=== PATIENT | female | born 1955 | race Caucasian/White ===

== ENCOUNTER 2017-07-12 08:38 | Outpatient (CLI) | payer OTHER ==
--- NOTE | 2017-07-13 15:40 | Mammography Report ---
DIGITAL SCREENING MAMMOGRAM: 07/12/2017 CLINICAL INDICATION: A 61-year-old with history of late childbearing for screening. COMPARISON: 05/2016, 05/2015, 04/2014, 06/2012, 09/2011, 02/2011, 08/2010, 07/2010 TECHNIQUE: Routine CC and MLO projections were obtained of the breasts. FINDINGS: The breasts again demonstrate heterogeneously dense fibroglandular parenchyma bilaterally. Punctate, typically benign calcifications are present. No suspicious masses, clustered microcalcif ications, or regions of architectural distortion are identified. IMPRESSION: BENIGN FINDINGS. RECOMMENDATION: Routine annual screening unless otherwise clinically indicated. BIRADS CATEGORY 2 - BENIGN FINDINGS. STANDARD QUALIFYING STATEMENTS 1. This examination was reviewed with the aid of Computer-Aided Detection (CAD). 2. A negative or benign imaging report should not delay biopsy if clinically suspicious findings are present. Consider surgical consultation if warranted. More than 5% of cancers are not identified by i maging. 3. Dense breasts may obscure an underlying neoplasm. JOB #: [id number] EXT JOB #:[id number]
== END 2017-07-12 08:39 | disposition home or self-care (01) ==
LOC: DI.S 08:38
PROVIDERS: ATTEND Physician Assistant
DX: Z12.31 Encounter for screening mammogram for malignant neoplasm of breast (principal)
CPT/HCPCS: 77067

== ENCOUNTER 2017-07-12 11:17 | Outpatient (CLI) | payer OTHER | END 2017-07-12 11:18 | disposition home or self-care (01) | LOC: DI 11:17 | PROVIDERS: ATTEND Physician Assistant | DX: R60.0 Localized edema (principal); I10 Essential (primary) hypertension; I51.7 Cardiomegaly | CPT/HCPCS: 93306 ==

== ENCOUNTER 2018-09-19 13:21 | Outpatient (CLI) | payer OTHER ==
--- NOTE | 2018-09-20 08:30 | Mammography Report ---
Reason: SCREENING MAMMO Procedure Date: 09/19/2018 Accession Number: [id number] / [id number] Procedure: [facility] - Screening Mammo w/Servando CPT Code: FULL RESULT: EXAM: Screening Mammo w/Servando DATE: 09/19/2018 1:54 PM CLINICAL HISTORY: Screening encounter. History of late childbearing. TECHNIQUE: Bilateral CC and MLO views were obtained. A cleavage view was obtained. COMPARISON: 07/12/2017 through 05/02/2014. FINDINGS: The breasts demonstrate heterogeneously dense fibroglandular parenchyma bilaterally. No suspicious masses, clustered microcalcifications, or regions of architectural distortion are identified. IMPRESSION: Negative examination RECOMMENDATION: Routine annual screening unless otherwise clinically indicated. BIRADS CATEGORY 1: Negative STANDARD QUALIFYING STATEMENTS: 1. This examination was not reviewed with the aid of Computer-Aided Detection (CAD). 2. A negative or benign imaging report should not preclude biopsy if clinically suspicious findings are present. 3. Dense breasts may obscure an underlying neoplasm. 4. This examination was reviewed without the aid of 3D breast imaging (tomosynthesis).
== END 2018-09-19 13:22 | disposition home or self-care (01) ==
LOC: DI 13:21
PROVIDERS: ATTEND Registered Nurse
DX: Z00.00 Encounter for general adult medical examination without abnormal findings (principal); Z12.31 Encounter for screening mammogram for malignant neoplasm of breast
CPT/HCPCS: 77063; 77067

== ENCOUNTER 2019-06-05 14:30 | Outpatient (CLI) | payer OTHER ==
[2019-06-06 19:52] LABS: CANDIDA GROUP DNA NEGATIVE (NEGATIVE); CANDIDA KRUSEI DNA NEGATIVE (NEGATIVE); TRICHOMONAS VAGINALIS DNA NEGATIVE (NEGATIVE)
== END 2019-06-05 23:59 | disposition home or self-care (01) ==
LOC: LAB.R 14:30
PROVIDERS: ATTEND Obstetrics & Gynecology
DX: N89.9 Noninflammatory disorder of vagina, unspecified (principal); L28.0 Lichen simplex chronicus
CPT/HCPCS: 87661; 87801

== ENCOUNTER 2019-10-30 10:12 | Outpatient (CLI) | payer BC ==
--- NOTE | 2019-10-30 12:33 | Mammography Report ---
Reason: SELF REFERRING MAMMO Procedure Date: 10/30/2019 Accession Number: [id number] / [id number] Procedure: [facility] - Screening Mammo Dig Bilat CPT Code: Final Report FULL RESULT: EXAM: Screening Mammo Dig Bilat DATE: 10/30/2019 10:35 AM CLINICAL HISTORY: Routine screening. Late childbearing. TECHNIQUE: (B) - Bilateral CC and MLO views were obtained. COMPARISON: 09/19/2018, 07/12/2017, 06/24/2016, 06/03/2015, 05/02/2014 and 03/15/2013 PARENCHYMAL PATTERN: (VD) - The breasts demonstrate extremely dense parenchyma bilaterally, limiting the sensitivity of mammography. FINDINGS: No significant interval change. There are no suspicious masses, calcifications, or areas of distortion. IMPRESSION: Negative examination. BI-RADS category 1. RECOMMENDATION: (ANNUAL) - Recommend routine annual screening mammography. BI-RADS CATEGORY: (1) - Negative. STANDARD QUALIFYING STATEMENTS: 1. This examination was not reviewed with the aid of Computer-Aided Detection (CAD). 2. A negative or benign imaging report should not preclude biopsy if clinically suspicious findings are present. 3. Dense breasts may obscure an underlying neoplasm. 4. This examination was reviewed without the aid of 3D breast imaging (tomosynthesis).
== END 2019-10-30 10:13 | disposition home or self-care (01) ==
LOC: DI.S 10:12
DX: Z12.31 Encounter for screening mammogram for malignant neoplasm of breast (principal)
CPT/HCPCS: 77067

== ENCOUNTER 2020-11-18 15:11 | Outpatient (CLI) | payer BC ==
--- NOTE | 2020-11-19 10:15 | Mammography Report ---
BILATERAL DIGITAL SCREENING MAMMOGRAM 3D/2D: 11/18/2020 CLINICAL: Routine screening. Comparison is made to exams dated: 10/30/2019 mammogram, 09/19/2018 mammogram, and 07/12/2017 mammogra m - [facility]. The tissue of both breasts is heterogeneously dense. This may lowe r the sensitivity of mammography. No significant masses, calcifications, or other findings are seen in either breast. There has been no significant interval change. IMPRESSION: NEGATIVE There is no mammographic evidence of malignancy. A 1 year screening mammogram is recommended. This exam was interpreted at Station ID: [id number]. NOTE: For mammograms, a report in lay terms will be sent to the patient. Approximately 15% of breast malignancies will not be visualized mammographically. In the management of a palpable breast mass, a negative mammogram must not discourage biopsy of a clinically suspicious lesion. Electronically Signed By: Lenora alas/penrad:11/18/2020 17:24:12 ACR BI-RADS Category 1: Negative 3341F PARENCHYMAL PATTERN: (D) - The breast(s) demonstrate(s) heterogeneously dense fibroglandular parmichaely ma. BI-RADS CATEGORY: (1) - 1 RECOMMENDATION: (ANNUAL) - Recommend routine annual screening mammography. [id number] 1 year screening LATERALITY: (B)
== END 2020-11-18 15:12 | disposition home or self-care (01) ==
LOC: DI.S 15:11
PROVIDERS: ATTEND Nurse Practitioner Family
DX: Z12.31 Encounter for screening mammogram for malignant neoplasm of breast (principal)

== ENCOUNTER 2022-03-04 12:50 | Outpatient (CLI) | payer BC, MEDICARE ==
[2022-03-04 13:49] VITALS: BP 126/80
--- NOTE | 2022-03-04 13:49 | SLEEP CARE CONSULTATION ---
Information from patient questionnaire entered by Jose Kraus MA. I have reviewed and concur with the information entered by Jose Kraus MA. This document represents the service I personally performed and the decisions made by , Savannah Mcgill ARNP. History of Present Illness Service Date and Time: 03/04/2022 1250 Reason for Visit: New patient (ONSET 09/25/2019, ) Chief Complaint: reports: Snoring, Observed pauses in breathing Date of Onset: 5-10 YEARS Usual bedtime: 10 PM Time it takes to fall asleep: 30 MIN Snores at night: Yes Observed to quit breathing while asleep: Yes Sleeps alone due to snoring: No Number of times waking at night: 4-5 Reasons for waking at night: reports: Snoring, Pain, Bathroom, Other ('s snoring; dog waking her up) Toss, Turn, or Twitch while sleeping: Yes Recalls having dreams: Yes (SOMETIMES, if able to lay in bed for a few minutes ) Usually gets out of bed at: 0600 Feels refreshed in the morning: No (not 100%; not really feeling tired) Morning headache: No Sleepy or fatigued during the day: No Ever fallen asleep while driving: No Takes day naps: No Dreams during day naps: No Prior sleep studies: No Additional HPI information: I had the pleasure of seeing KATEY PETERSON today regarding the possibility of her having a sleep disorder. Her current complaints are snoring and observed pauses in breathing. Her has told her she snores and has pauses in breathing. She states she has had an occasional feeling of something closing in her throat when laying in bed. She does elevated her head when sleeping. - Parasomnia Symptoms Ever been unable to move upon waking from sleep: No Walks in sleep: No Talks in sleep: No Ever acted out dreams in sleep: No Ever felt weak in the knees when startled or emotional: No Bothered by creepy, crawly, restless sensations in legs: No Problems with memory or concentration: No Subjective Initial [place] Sleepiness Scale score: 11 (03/04/2022) Past Medical History Past Medical History: reports: Hypertension, Arthritis, Other (Yi's disease, in remission; 3 basal cell carcinoma on face/scalp (Greg); psoriasis) Social History The patient's occupation is a [employer]. Patient is and lives in [place]. Have you smoked in the past 12 months: No Cigarettes per day (20/pack): 2 Years of smokin Quit date: 2011 Smoking Pack Years: 1.0 Alcohol use: Yes Alcohol amount and frequency: 12 X WEEKLY Caffeine use: Yes Caffeine amount and frequency: 2 X PER DAY Family History Family history of sleep disordered breathing: No Allergies and Home Medications Known drug allergies: No Drug allergies reviewed: Yes (NKDA) Home medication list reviewed: Yes Allergy and home medication list: Medications: Marshall 5/325 mg, prn Nystatin powder, prn Clobetasol 0.05 % ointment, prn Gaviscon, prn Irbesartan, daily Multivitamins, daily Review of Systems Weight gain over past 5 years: 10 Weight loss over past 5 years: 10 Cardiovascular: reports: high blood pressure, leg or foot swelling Gastrointestinal: reports: heartburn Urinary: reports: incontinence Neurological: reports: gait or balance problems. denies: head trauma Psychiatric: denies: Attention Deficit Hyperactivity, anxiety, depression Ear/Nose/Throat: denies: nasal congestion, sinus problems, injury to nose, tonsillectomy Endocrine: denies: thyroid disease Musculoskeletal: reports: joint pain Immunologic: reports: sneezing Physical Exam Vital signs obtained and entered by: CJ PAGAN Blood Pressure: 126/80 (RESP 18, PULSE 79, RIGHT, ) Cuff size: wrist Heart Rate: 78 O2 Saturation: 96 (PAPER MASK) Height: 5 ft 7 in Weight: 224 lb (WITH CLOTHES) Body Mass Index: 35.0 BMI Classification: Obese Neck circumference: 13.5 (INCHES) Mouth and throat: normal Soft palate: long Hard palate: normal Uvula: normal Uvula visualization: 50% Mallampati Class II Tongue: enlarged in size with teeth haji on lateral edges Tonsils: 2+ (on right, 1+ on left) Neck: normal w/o lymphadenopathy or thyromegaly Heart: regular rate and rhythm Lungs: clear bilaterally Impression and Plan 1. Suspected Obstructive Sleep Apnea-Hypopnea Syndrome, as suggested by a history of loud and irregular snoring, observed cessation of breath while asleep, frequent awakening during the night, unrefreshed sleep, and excessive daytime sleepiness. Narrow oropharynx and obesity are common predisposing factors for obstructive sleep apnea-hypopnea syndrome. I recommend proceeding to polysomnography to confirm the diagnosis and to assess severity. If the patient has significant sleep disordered breathing, a manual CPAP titration study will also be performed to find the optimal treatment pressure. I informed the patient of what the sleep studies involve and after some discussion, obtained agreement to proceed. The pathophysiology of obstructive sleep apnea-hypopnea syndrome was discussed with the patient and health risks of cardiovascular and cerebrovascular disease if not treated. Risks of drowsy driving discussed in detail and patient advised to avoid long distance driving and to chain puller at the first sign of drowsiness. Patient agreed to plan. * Schedule polysomnography * Avoid long distance driving or driving when feeling sleepy. * Avoid alcohol, sedative and muscle relaxant around bedtime. * Attempt to lose weight. * Review instructions provided by trained office staff on how to prepare for the sleep study. * Return for follow-up after sleep study completed. Counseling Topics: Weight loss health impact Visit Type: In Office Time Spent with Patient (minutes): 30 Provider Statement: I spent 100% of the Face to Face Visit with the patient with greater than 50% spent counseling the patient and coordination of care.
== END 2022-03-04 12:51 | disposition home or self-care (01) ==
LOC: SC 12:50
PROVIDERS: ATTEND Nurse Practitioner Family
DX: R06.83 Snoring (principal); G47.8 Other sleep disorders; G47.10 Hypersomnia, unspecified
CPT/HCPCS: 99203; G0463; 99212

== ENCOUNTER 2022-04-01 12:50 | Outpatient (CLI) | payer MEDICARE ==
--- NOTE | 2022-04-01 13:41 | SLEEP CARE CONSULTATION ---
Information from patient questionnaire entered by Jose Kraus MA. I have reviewed and concur with the information entered by Jose Kraus MA. This document represents the service I personally performed and the decisions made by , Savannah Mcgill ARNP. History of Present Illness Service Date and Time: 04/01/2022 1250 Initial [place] Sleepiness Scale score: 11 (03/04/2022) Current [place] Sleepiness Scale score: 8 (04/01/2022) Additional HPI information: KATEY PETERSON returns with spouse for follow up and results of the recently performed polysomnography. I explained the pathophysiology behind obstructive sleep apnea. We then spent quite a bit of time discussing different treatment options. For mild obstructive sleep apnea, surgery and oral appliance are alternatives to nasal CPAP therapy but in moderate or severe cases, nasal CPAP is the most effective and reliable treatment. Because apnea is primarily in supine position, then positional management therapy could be effective. Methods discussed such as positioning with pillows to prevent supine sleep. I reviewed the impact of weight changes on sleep apnea and strongly recommended losing weight. After some discussion, the patient opted to go with the nasal CPAP therapy. Nasal autoCPAP set at 4-15 cmH20 will be ordered with rationale explained. A manual titration study will be ordered if unable to find optimal pressure with office adjustments. I explained how CPAP machine works and what to expect when using the machine. Using CPAP every night in order to get used to it was emphasized. Patient advised to put CPAP mask on before getting into bed so as not to fall asleep without CPAP. To assist acclimation to CPAP use, it could also be used for a short time during day while reading or watching TV. The patient was instructed to call the CPAP supplier to discuss any mechanical problem that may occur. If the mask given is uncomfortable or is difficult to keep on through the night even with adjustment, contact the CPAP supplier as many will replace with another mask style if notified before 30 days. If snoring or perceives is not getting enough air or too much air from the machine, notify this office. Patient counseled not drink alcohol less than 4 hours before bedtime as it can increase snoring and apnea. Patient was cautioned about risks of drowsy driving until sleepiness symptoms resolve. Patient denies drowsy driving. Sleep Study - Results Type of Sleep Study: Polysomnography (F/U [facility], [facility] Prior sleep studies: No Polysomnography/Home Sleep Study results: IMPRESSION: The quality of the study is good. The patient had normal sleep efficiency. The sleep architecture was abnormal for sleep fragmentation and reduced amount of time spent in REM sleep. Respiratory monitoring showed severe obstructive sleep apnea-hypopnea (AHI = 37.6) associated with frequent arousals, oxyhemoglobin desaturation and moderate hypoxia (jasmin oxygen saturation of 74%). Baseline oxygen saturation was normal. The respiratory events occurred independently of sleep stage and body position (supine AHI = 27.2; non-supine = 47.69). Snore was light to loud in intensity. There was moderate periodic leg movement of sleep not contributing to the sleep fragmentation. Cardiac rhythm was normal sinus rhythm with occasional premature atrial contractions. No abnormal behavior (parasomnia) observed during the night. Allergies and Home Medications Home medication list reviewed: Yes (no changes) Review of Systems Review of systems same as previous: Yes (no changes) Physical Exam Vital signs obtained and entered by: CJ PAGAN Blood Pressure: 111/90 (RESP 16, PULSE 75, LFT) Heart Rate: 76 O2 Saturation: 98 (PAPER MASK) Height: 5 ft 7 in Weight: 228 lb (CLOTHES) Weight change since last visit: LOSE, PORTION AND HEALTHY MEALS Body Mass Index: 35.6 BMI Classification: Obese Impression and Plan 1. Obstructive Sleep Apnea-Hypopnea Syndrome, severe, with lowest oxygen saturation of 74%. Obviously this is the cause of the patients symptoms of unrefreshed sleep, and excessive daytime sleepiness. Positive pressure therapy could benefit hypertension. As mentioned above, the patient will be started on nasal autoCPAP therapy with pressure set at 4-15 cmH2O. Compliance guidelines also reviewed. A copy of compliance guidelines will be given for reference at check out. 2. Hypoxemia, moderate, with a jasmin oxygen saturation of 74% and 7.2 minutes under 89%. Her baseline oxygen saturation was normal was normal with an average oxygen saturation of 94%. * Nasal auto CPAP therapy, pressure at 4-15 cm H2O. * Attempt to lose weight. * Avoid alcohol consumption near bedtime. * The patient is again cautioned about driving until sleepiness completely resolves. * Return one month after CPAP obtained. I will assess response to therapy and compliance at that time. Counseling Topics: Weight loss health impact Visit Type: In Office Time Spent with Patient (minutes): 23 Provider Statement: I spent 100% of the Face to Face Visit with the patient with greater than 50% spent counseling the patient and coordination of care.
[2022-04-01 13:42] VITALS: BP 111/90
== END 2022-04-01 12:51 | disposition home or self-care (01) ==
LOC: SC 12:50
PROVIDERS: ATTEND Nurse Practitioner Family
DX: G47.33 Obstructive sleep apnea (adult) (pediatric) (principal); R09.02 Hypoxemia; E66.9 Obesity, unspecified; Z68.35 Body mass index [BMI] 35.0-35.9, adult
CPT/HCPCS: 99213; G0463; 99212

== ENCOUNTER 2022-04-13 10:30 | Outpatient (CLI) | payer MEDICARE ==
--- NOTE | 2022-04-13 16:18 | Mammography Report ---
BILATERAL DIGITAL SCREENING MAMMOGRAM 3D/2D: 04/13/2022 CLINICAL: Routine screening. Comparison is made to exams dated: 11/18/2020 mammogram, 10/30/2019 mammogram, 09/19/2018 mammogram, mammogram, and 06/24/2016 mammogram - [facility]. The tissue of both breas ts is heterogeneously dense. This may lower the sensitivity of mammography. No significant masses, calcifications, or other findings are seen in either breast. There has been no significant interval change. IMPRESSION: NEGATIVE There is no mammographic evidence of malignancy. A 1 year screening mammogram is recommended. Based on the Tyrer Cuzick model (a risk assessment model) the patients lifetime risk is 12.3% and he r 10 year risk is 6.3%. According to the ACR, ACS, and NCCN guidelines, an annual breast MRI exam lg ng with mammogram is recommended if the patients lifetime risk is 20% or greater. This exam was interpreted at Station ID: [id number]. NOTE: For mammograms, a report in lay terms will be sent to the patient. Approximately 15% of breast malignancies will not be visualized mammographically. In the management of a palpable breast mass, a negative mammogram must not discourage biopsy of a clinically suspicious lesion. Electronically Signed By: Jey yee/celina:04/13/2022 11:17:32 ACR BI-RADS Category 1: Negative 3341F PARENCHYMAL PATTERN: (D) - The breast(s) demonstrate(s) heterogeneously dense fibroglandular olivia vasquez. BI-RADS CATEGORY: (1) - 1 RECOMMENDATION: (ANNUAL) - Recommend routine annual screening mammography. [id number] 1 year screening LATERALITY: (B)
== END 2022-04-13 10:31 | disposition home or self-care (01) ==
LOC: DI 10:30
PROVIDERS: ATTEND Obstetrics & Gynecology
DX: Z12.31 Encounter for screening mammogram for malignant neoplasm of breast (principal)

== ENCOUNTER 2022-04-13 10:33 | Outpatient (CLI) | payer MEDICARE ==
--- NOTE | 2022-04-13 13:11 | DEXA Report ---
PROCEDURE: Dexa Spine and/or Hip INDICATIONS: SCREENING FOR OSTEOPOROSIS TECHNIQUE: Dual energy x-ray absorptiometry (DXA) was performed on a [employer]. Regions measur ed are the AP Spine, femoral neck, and if needed forearm. COMPARISON: None. FINDINGS: Lumbar Spine: Bone Mineral Density 1.1 g/cm/cm,T score -0.9, normal bone density Left Hip: Bone Mineral Density 0.9 g/cm/cm,T score -0.8, normal bone density Impression: Normal bone density of the lumbar spine and left hip. Patients with diagnosis of osteoporosis or osteopenia should have regular bone mineral density assess ment. For those eligible for Medicare, routine testing is allowed once every 2 years. Testing frequ ency can be increased for patients who have rapidly progressing disease or for those who are receivin g medical therapy to restore bone mass. Reviewed by: Tawny Templeton MD on 04/13/2022 1:10 PM PDT Approved by: Tawny Templeton MD on 04/13/2022 1:10 PM PDT Station ID: [id number]
== END 2022-04-13 10:34 | disposition home or self-care (01) ==
LOC: DI 10:33
PROVIDERS: ATTEND Obstetrics & Gynecology
DX: Z13.820 Encounter for screening for osteoporosis (principal)

== ENCOUNTER 2022-08-12 09:06 | Outpatient (CLI) | payer MEDICARE ==
[2022-08-12 10:09] VITALS: BP 130/82
--- NOTE | 2022-08-12 10:09 | SLEEP CARE CONSULTATION ---
Information from patient questionnaire entered by Kimberly Vivar. I have reviewed and concur with the information entered by Kimberly Vivar. This document represents the service I personally performed and the decisions made by me, Savannah Mcgill ARNP. History of Present Illness Service Date and Time: 08/12/2022 09 Previous diagnosis: Severe, Obstructive Sleep Apnea-Hypopnea Syndrome AHI: 37.6 (in 2021) Reason for follow up: first compliance Equipment type: CPAP (ResMed) Equipment obtained from: [facility] (got initial supplies) Mask style: Full face Mask brand: Resmed (F20) Backup mask available: No Prior sleep studies: No Type of Sleep Study: Polysomnography (F/U POLY, 03/16/22 [facility], POS (SEVERE)) HPI additional information: KATEY PETERSON was diagnosed to have severe, AHI 37.6, obstructive sleep apnea- hypopnea syndrome and returned today with spouse for CPAP therapy first compliance follow-up. Sleep Study - Results Type of Sleep Study: Polysomnography (F/U POLY, 03/16/22 [facility], POS (SEVERE)) Prior sleep studies: No CPAP Compliance Data - Data Reviewed with Patient Average duration of nightly device use: 7 HRS 39 MIN Compliance rate %: 97 (06/11/2022-08/09/2022; 58/60 days used) Current pressure setting (cmH2O): 4-15 (median 11.5, avg 15.2, max 15.8) Average residual AHI: 2.3 Central apnea: 0.2 Obstructive apnea: 0.5 Hypopnea: 0.2 Subjective Missed days of use due to: reports: other (power outages) Patient concerns: reports: air blowing in eyes (only when taking off and putting back on after bathroom), condensation in mask/hose, dry mouth, nose, throat, other (headache). denies: aerophagia, mask discomfort, mask leak noise, nasal congestion, epistaxis Observed to snore while using device: No Current pressure setting perceived as: comfortable On therapy, patient: reports: sleeping better, other (feels like getting less sleep than before; light sleeper). denies: drowsiness while driving Initial [place] Sleepiness Scale score: 11 (03/04/2022) Current [place] Sleepiness Scale score: 8 (08/12/2022) Allergies and Home Medications Drug allergies reviewed: Yes (NKDA) Home medication list reviewed: Yes (no changes) Review of Systems Review of systems same as previous: Yes (no changes) Physical Exam Vital signs obtained and entered by: KIMBERLY Mott MA Blood Pressure: 130/82 (LEFT ARM) Cuff size: regular Heart Rate: 72 O2 Saturation: 98 Height: 5 ft 7 in Weight: 234 lb 9.6 oz Body Mass Index: 36.7 BMI Classification: Obese Impression and Plan 1. Obstructive Sleep Apnea-Hypopnea Syndrome, severe, with good treatment compl iance and good apnea control. Patient has felt that she is sleeping better in the last week, better quality sleep. But, she states she is a light sleeper and the mask leak noises are waking her up. This is interrupting her sleep more than before she started using her CPAP. So far, she is not feeling more rested during the day. Her [place] score improved from 11\24-8\24. Patient is using a F20 full face mask. She feels her mouth comes open and sometimes gets dry. She has adjusted her humidifier and heated hose and it seems to be working better at this time. She has been getting some headaches on her left sinus since starting using the CPAP. She denies specific sinus issues and states she has been sleeping more on that side. I discussed using a CPAP pillow to reduce pressure on the side of her face to see if this will help reduce headaches and will also keep pressure down. We will reevaluate this at her next visit to see if they have improved. The patients pressure will be changed to autoCPAP 12-15 cmH20 to reflect pressures being used. Patient advised to contact me if pressure change is uncomfortable so that it can be adjusted. Goals for apnea control discussed. Patient's apnea severity and rationale for treatment to reduce apnea, improve sleep quality and reduce cardiovascular and cerebrovascular events was reviewed. I also reviewed the benefit of consistent device use of CPAP for hypertension. 2. Obesity, unspecified. Currently patients BMI is 37.6. Obesity increases the risk of apnea, CPAP pressure requirements and overall health risks especially cardiovascular and diabetes. Thus patient is advised to lose weight. * Change auto CPAP pressure to 12-15 cmH2O * Notify me if snoring with mask or feeling that the pressure is too much or too little * Attempt to lose weight * Call this office if any problems using CPAP * Return for follow up in 1-2 months, or sooner if concerns arise Counseling Topics: Spare mask, Weight loss health impact Visit Type: In Office Time Spent with Patient (minutes): 21 Provider Statement: I spent 100% of the Face to Face Visit with the patient with greater than 50% spent counseling the patient and coordination of care.
== END 2022-08-12 09:07 | disposition home or self-care (01) ==
LOC: SC 09:06
PROVIDERS: ATTEND Nurse Practitioner Family
DX: G47.33 Obstructive sleep apnea (adult) (pediatric) (principal); E66.9 Obesity, unspecified; Z68.36 Body mass index [BMI] 36.0-36.9, adult
CPT/HCPCS: 99213; G0463; 99212

== ENCOUNTER 2022-08-17 09:16 | Outpatient (CLI) | payer MEDICARE ==
[2022-08-17 09:22] LABS: MUDS CUTOFF CONCENTRATIONS CUTOFF CONC BELOW:
[2022-08-17 14:58] LABS: AMPHETAMINE SCREEN,URINE NEGATIVE (NEGATIVE); COCAINE SCREEN URINE NEGATIVE (NEGATIVE); METHAMPHETAMINES SCREEN, URINE NEGATIVE (NEGATIVE); OPIATE SCREEN, URINE POSITIVE (NEGATIVE); THC CANNABINOID SCREEN, URINE NEGATIVE (NEGATIVE)
[2022-08-17 14:59] LABS: BARBITURATE SCREEN,UR NEGATIVE (NEGATIVE); BENZODIAZEPINES SCREEN, URINE NEGATIVE (NEGATIVE); METHADONE SCREEN, URINE NEGATIVE (NEGATIVE); OXYCODONE SCREEN, URINE NEGATIVE (NEGATIVE); PROPOXYPHENE SCREEN, URINE NEGATIVE (NEGATIVE); TRICYCLIC ANTIDEPRESSANT,URINE NEGATIVE (NEGATIVE)
== END 2022-08-17 09:17 | disposition home or self-care (01) ==
LOC: LAB.S 09:16
PROVIDERS: ATTEND Internal Medicine Rheumatology
DX: Z79.891 Long term (current) use of opiate analgesic (principal)
CPT/HCPCS: 80306

== ENCOUNTER 2022-10-14 09:51 | Outpatient (CLI) | payer MEDICARE ==
[2022-10-14 10:21] VITALS: BP 140/86
--- NOTE | 2022-10-14 10:21 | SLEEP CARE CONSULTATION ---
Information from patient questionnaire entered by Claudio Vivar. I have reviewed and concur with the information entered by Claudio Vivar. This document represents the service I personally performed and the decisions made by me, Savannah Mcgill ARNP. History of Present Illness Service Date and Time: 10/14/2022 0951 Previous diagnosis: Severe, Obstructive Sleep Apnea-Hypopnea Syndrome AHI: 37.6 Reason for follow up: other (TWO MONTH F/U) Equipment type: CPAP (RESMED Airsense 11, s/u 04/2022) Equipment obtained from: [employer] Mask style: Full face Mask brand: Resmed (F20) Backup mask available: Yes (other mask) Last cushion change: not changed since start; switching betw small and medium cushions Prior sleep studies: No Type of Sleep Study: Polysomnography (F/U POLY, 03/16/22 [facility], POS (SEVERE)) HPI additional information: KATEY PETERSON was diagnosed to have severe, AHI 37.6, obstructive sleep apnea- hypopnea syndrome and returned today with spouse for CPAP therapy two month follow-up. Sleep Study - Results Type of Sleep Study: Polysomnography (F/U POLY, 03/16/22 [facility], POS (SE[facility])) Prior sleep studies: No CPAP Compliance Data - Data Reviewed with Patient Average duration of nightly device use: 7 HRS 30 MIN Compliance rate %: 100 (08/13/22-10/11/22; 60/60 days used) Current pressure setting (cmH2O): 12-15 Average residual AHI: 1.6 Central apnea: 0.1 Obstructive apnea: 0.3 Subjective Patient concerns: reports: aerophagia (little bit), mask discomfort, air blowing in eyes, mask leak noise, condensation in mask/hose, dry mouth, nose, throat, other (headaches). denies: nasal congestion, epistaxis Observed to snore while using device: No Current pressure setting perceived as: comfortable On therapy, patient: reports: other (still getting used to mask. mask noise waking her up often). denies: sleeping better, awakening more refreshed, being more awake and alert during the day, more rested overall, drowsiness while driving Initial [place] Sleepiness Scale score: 11 (03/04/2022) Current [place] Sleepiness Scale score: 9 (10/14/22) Allergies and Home Medications Drug allergies reviewed: Yes (NKDA) Home medication list reviewed: Yes (no changes) Review of Systems Review of systems same as previous: Yes (no changes) Physical Exam Vital signs obtained and entered by: CLAUDIO Mott MA Blood Pressure: 140/86 (LEFT ARM) Cuff size: regular Heart Rate: 76 O2 Saturation: 98 Height: 5 ft 7 in Weight: 233 lb 9.6 oz Body Mass Index: 36.6 BMI Classification: Obese Impression and Plan 1. Obstructive Sleep Apnea-Hypopnea Syndrome, severe, with good treatment c ompliance and good apnea control. Patient has had some mild bloating with burping in the morning and occasional headaches. She is also having issues with mask discomfort when she is sleeping on her side and getting mask leaks and air leaking into her eyes. She has been switching from a medium to a small mask of her full face ResMed F20. She would like to try a different mask and I showed her several examples in the office. She would like to try the ResMed AirFit F 30i. I will add this to her prescription today. To reduce symptoms of aerophagia, the CPAP pressure will be reduced to 12-14 cmH2O. Patient advised to contact me if this does not reduce symptoms or if pressure change uncomfortable. Patient also advised to change the mask cushion since she has not since she started using her CPAP in June. She voiced understanding. Patient's apnea severity and rationale for treatment to reduce apnea, improve sleep quality and reduce cardiovascular and cerebrovascular events was reviewed. I also reviewed the benefit of consistent device use of CPAP for hypertension. 2. Obesity, unspecified. Currently patients BMI is 36.6. Obesity increases the risk of apnea, CPAP pressure requirements and overall health risks especially cardiovascular and diabetes. Thus patient is advised to lose weight. * Change auto CPAP pressure to 12-14 cmH2O * Mask fitting for ResMed Airfit F30i * Notify me if snoring with mask or feeling that the pressure is too much or too little * Attempt to lose weight * Call this office if any problems using CPAP * Return for follow up in 3 months, or sooner if concerns arise Counseling Topics: Spare mask, Weight loss health impact Visit Type: In Office Other Participants: Spouse/Significant Other Time Spent with Patient (minutes): 21 Provider Statement: I spent 100% of the Face to Face Visit with the patient with greater than 50% spent counseling the patient and coordination of care.
== END 2022-10-14 09:52 | disposition home or self-care (01) ==
LOC: SC 09:51
PROVIDERS: ATTEND Nurse Practitioner Family
DX: G47.33 Obstructive sleep apnea (adult) (pediatric) (principal); E66.9 Obesity, unspecified; Z68.36 Body mass index [BMI] 36.0-36.9, adult
CPT/HCPCS: 99213; G0463; 99212

== ENCOUNTER 2023-01-13 09:48 | Outpatient (CLI) | payer MEDICARE ==
[2023-01-13 10:28] VITALS: BP 126/80
--- NOTE | 2023-01-13 10:28 | SLEEP CARE CONSULTATION ---
Information from patient questionnaire entered by Claudio Vivar. I have reviewed and concur with the information entered by Claudio Vivar. This document represents the service I personally performed and the decisions made by me, Savannah Mcgill ARNP. History of Present Illness Service Date and Time: 01/13/2023 0948 Previous diagnosis: Severe, Obstructive Sleep Apnea-Hypopnea Syndrome AHI: 37.6 Reason for follow up: three month (F/U) Accompanied by: Spouse Equipment type: CPAP (RESMED Airsense 11, s/u 04/2022) Equipment obtained from: [employer] (getting supplies) Mask style: Full face Mask brand: Resmed (AirFit F20) Backup mask available: Yes (old mask) Last cushion change: rotating through 4 mask Prior sleep studies: No Type of Sleep Study: Polysomnography (F/U POLY, 03/16/22 [facility], POS ([facility])) HPI additional information: KATEY PETERSON was diagnosed to have severe, AHI 37.6, obstructive sleep apnea- hypopnea syndrome and returned today with spouse for CPAP therapy three month follow-up. Sleep Study - Results Type of Sleep Study: Polysomnography (F/U POLY, 03/16/22 [facility], POS ([facility])) Prior sleep studies: No CPAP Compliance Data - Data Reviewed with Patient Average duration of nightly device use: 7 HRS 30 MINS Compliance rate %: 99 (10/14/22-01/11/23; 89/90 days used) Current pressure setting (cmH2O): 12-14 Average residual AHI: 1.3 Central apnea: 0.1 Obstructive apnea: 0.3 Subjective Patient concerns: reports: mask discomfort, mask leak noise, dry mouth, nose, throat. denies: aerophagia, air blowing in eyes, condensation in mask/hose, nasal congestion, epistaxis Observed to snore while using device: No Current pressure setting perceived as: comfortable On therapy, patient: reports: other (is a light sleeper and CPAP is disruptive due to noise). denies: drowsiness while driving Initial [place] Sleepiness Scale score: 11 (03/04/2022) Current [place] Sleepiness Scale score: 7 (01/13/23) Allergies and Home Medications Known drug allergies: No Drug allergies reviewed: Yes Home medication list reviewed: Yes (no changes) Allergy and home medication list: Allergies No Known Drug Allergies Allergy (Verified 01/12/23 13:40) Review of Systems Review of systems same as previous: No (right tonsil swollen, CT scan tomorrow) Physical Exam Vital signs obtained and entered by: CLAUDIO Mott MA Blood Pressure: 126/80 (left arm) Cuff size: regular Heart Rate: 72 O2 Saturation: 99 Height: 5 ft 7 in Weight: 238 lb Body Mass Index: 37.3 BMI Classification: Obese Impression and Plan 1. Obstructive Sleep Apnea-Hypopnea Syndrome, severe, with good treatment compliance and good apnea control. On CPAP therapy, the patient feels she does not rest as well because of the CPAP mask leaking noise. I did recommend a mask change at her last visit and sent this to her DME, but it was not done. I will send a second request for mask fitting for the Resmed AirFit F30i full face mask. She will call in a few days to schedule this with her DME. Patient's apnea severity and rationale for treatment to reduce apnea, improve sleep quality and reduce cardiovascular and cerebrovascular events was reviewed. I also reviewed the benefit of consistent device use of CPAP for hypertension. 2. Obesity, unspecified. Currently patients BMI is 37.3. Obesity increases the risk of apnea, CPAP pressure requirements and overall health risks especially cardiovascular and diabetes. Thus patient is advised to lose weight. * Continue auto CPAP pressure at 12-14 cmH2O * Mask fitting for AirFit F30i mask, second request * Notify me if snoring with mask or feeling that the pressure is too much or too little * Attempt to lose weight * Call this office if any problems using CPAP * Return for follow up in 6 months, or sooner if concerns arise Counseling Topics: Spare mask, Weight loss health impact Visit Type: In Office Time Spent with Patient (minutes): 20 Provider Statement: I spent 100% of the Face to Face Visit with the patient with greater than 50% spent counseling the patient and coordination of care.
== END 2023-01-13 09:49 | disposition home or self-care (01) ==
LOC: SC 09:48
PROVIDERS: ATTEND Nurse Practitioner Family
DX: G47.33 Obstructive sleep apnea (adult) (pediatric) (principal); E66.9 Obesity, unspecified; Z68.37 Body mass index [BMI] 37.0-37.9, adult
CPT/HCPCS: 99213; G0463; 99212

== ENCOUNTER 2023-06-07 08:51 | Outpatient (CLI) | payer MEDICARE ==
--- NOTE | 2023-06-08 11:21 | Mammography Report ---
BILATERAL DIGITAL SCREENING MAMMOGRAM 3D/2D: 06/07/2023 CLINICAL: Routine screening. Family history of breast cancer. Comparison is made to exams dated: 04/13/2022 mammogram, 11/18/2020 mammogram, 10/30/2019 mammogram, and 09/19/2018 mammogram - [facility]. Both breasts are heterogeneously dense, which may obscure small masses (category c / 51-75% glandular tissue). No significant masses, calcifications, or other findings are seen in either breast. There has been no significant interval change. IMPRESSION: NEGATIVE There is no mammographic evidence of malignancy. A 1 year screening mammogram is recommended. Based on the Tyrer Cuzick model (a risk assessment model) the patients lifetime risk is 12.4% and he r 10 year risk is 6.6%. According to the ACR, ACS, and NCCN guidelines, an annual breast MRI exam lg ng with mammogram is recommended if the patients lifetime risk is 20% or greater. This exam was interpreted at Station ID: [id number]. NOTE: For mammograms, a report in lay terms will be sent to the patient. Approximately 15% of breast malignancies will not be visualized mammographically. In the management of a palpable breast mass, a negative mammogram must not discourage biopsy of a clinically suspicious lesion. Electronically Signed By: Hadley tompkins/[email or web address]:06/07/2023 18:46:07 letter sent: No_Letter ACR BI-RADS Category 1: Negative 3341F PARENCHYMAL PATTERN: (D) - The breast(s) demonstrate(s) heterogeneously dense fibroglandular olivia vasquez. BI-RADS CATEGORY: (1) - 1 Mammogram [id number] 1 year screening LATERALITY: (B)
== END 2023-06-07 08:52 | disposition home or self-care (01) ==
LOC: DI.S 08:51
DX: Z12.31 Encounter for screening mammogram for malignant neoplasm of breast (principal); Z80.3 Family history of malignant neoplasm of breast

== ENCOUNTER 2023-07-28 10:42 | Outpatient (CLI) | payer MEDICARE ==
--- NOTE | 2023-07-28 11:12 | Sleep Patient Instructions ---
Sleep Center Visit Summary - Patient Visit Information Reason for Visit: 6 month follow up - Patient Instructions Additional Instructions: You were here for follow up of CPAP therapy. You will be continued on CPAP therapy with pressure at 9-11 cmH2O. Please let us know if the pressure change is uncomfortable and we can make further adjustments of the pressure. You should follow up with sleep care in 12 months. You may contact us sooner for any questions or concerns. - Clinic Information Contact: [facility] [address] [place] [id number] [email or web address] T: [phone]
--- NOTE | 2023-07-28 11:26 | SLEEP CARE CONSULTATION ---
Information from patient questionnaire entered by Claudio Vivar. I have reviewed and concur with the information entered by Claudio Vivar. This document represents the service I personally performed and the decisions made by me, Savannah Mcgill ARNP. History of Present Illness Service Date and Time: 07/28/2023 1042 Previous diagnosis: Severe, Obstructive Sleep Apnea-Hypopnea Syndrome AHI: 37.6 Reason for follow up: six month (F/U) Accompanied by: Spouse Equipment type: CPAP (RESMED Airsense 11, s/u 04/2022) Equipment obtained from: [employer] (getting supplies) Mask style: Full face Mask brand: Resmed (AirFit F20) Backup mask available: Yes Last cushion change: rotating through 4 cushions Prior sleep studies: No Type of Sleep Study: Polysomnography (F/U POLY, 03/16/22 [facility], POS (SEVERE)) HPI additional information: THANG PETERSON was diagnosed to have severe, AHI 37.6, obstructive sleep apnea- hypopnea syndrome and returned today with spouse for CPAP therapy six month follow-up. Sleep Study - Results Type of Sleep Study: Polysomnography (F/U POLY, 03/16/22 [facility], POS (SEV[facility])) Prior sleep studies: No CPAP Compliance Data - Data Reviewed with Patient Average duration of nightly device use: 7 HRS 17 MINS Compliance rate %: 98 (01/27/23-07/25/23; 176/180 days used) Current pressure setting (cmH2O): 11-14 (as seen on website) Average residual AHI: 1.1 Central apnea: 0.1 Obstructive apnea: 0.2 Average large leak: 1.5 L/min Subjective Patient concerns: reports: aerophagia (belching in morning, sometimes), air blowing in eyes, mask leak noise, dry mouth, nose, throat, other (headache, sometimes). denies: mask discomfort, condensation in mask/hose, nasal congestion, epistaxis Observed to snore while using device: No Current pressure setting perceived as: comfortable On therapy, patient: reports: other (mask leaking is interrupting her sleep). denies: drowsiness while driving Initial [place] Sleepiness Scale score: 11 (03/04/2022) Current [place] Sleepiness Scale score: 9 (07/28/23) Allergies and Home Medications Known drug allergies: No Drug allergies reviewed: Yes Home medication list reviewed: Yes (no changes) Allergy and home medication list: Allergies No Known Drug Allergies Allergy (Verified 07/27/23 12:37) Review of Systems Review of systems same as previous: No (SWOLLEN TONSIL) Physical Exam Vital signs obtained and entered by: CLAUDIO Mott MA Blood Pressure: 130/82 (LEFT ARM) Cuff size: long Heart Rate: 64 O2 Saturation: 97 Height: 5 ft 7 in Weight: 241 lb 9.6 oz Body Mass Index: 37.8 BMI Classification: Obese Impression and Plan 1. Obstructive Sleep Apnea-Hypopnea Syndrome, severe, with good treatment compliance and good apnea control. On CPAP therapy, her snoring is better but she feels it is interrupting her sleep more. She has been experiencing headaches and bloating in the mornings. To reduce symptoms of aerophagia, the CPAP p ressure will be reduced to 9-11 cmH2O. Patient advised to contact me if this does not reduce symptoms or if pressure change uncomfortable. Patient's apnea severity and rationale for treatment to reduce apnea, improve sleep quality and reduce cardiovascular and cerebrovascular events was reviewed. I also reviewed the benefit of consistent device use of CPAP for hypertension. 2. Obesity, unspecified. Currently patients BMI is 37.8. Obesity increases the risk of apnea, CPAP pressure requirements and overall health risks especially cardiovascular and diabetes. Thus patient is advised to lose weight. * Change auto CPAP pressure to 9-11 cmH2O * Notify me if snoring with mask or feeling that the pressure is too much or too little * Attempt to lose weight * Call this office if any problems using CPAP * Return for follow up in 1 year, or sooner if concerns arise Counseling Topics: Spare mask, Weight loss health impact Follow up with Sleep Care in: 1 year Visit Type: In Office Time Spent with Patient (minutes): 23 Provider Statement: I spent 100% of the Face to Face Visit with the patient with greater than 50% spent counseling the patient and coordination of care.
[2023-07-28 11:28] VITALS: BP 130/82; O2SAT 97
== END 2023-07-28 10:43 | disposition home or self-care (01) ==
LOC: SC 10:42
PROVIDERS: ATTEND Nurse Practitioner Family
DX: G47.33 Obstructive sleep apnea (adult) (pediatric) (principal); E66.9 Obesity, unspecified; Z68.37 Body mass index [BMI] 37.0-37.9, adult
CPT/HCPCS: 99213; G0463; 99212